=== PATIENT | male | born 1965 | race Caucasian/White ===

== ENCOUNTER 2016-10-06 13:21 | Inpatient (IN) | payer MEDICARE ==
[~2016-10-06 13:21] MED LIST: ALBUTEROL SULF8.5 GM IH; AMOXICILLIN500 M1 PO; AMOXICILLIN875 M1 PO; ASPIRIN EC81 MG PO; ASPIRIN81 M1 PO; ASPIRIN81 MG PO; BACLOFEN10 M1 PO; BACTRIM DS TAB1 EAC2 PO; BACTRIM DS TABL1 TAB PO; CLINDAMYCIN HC300 MG PO; COLACE50 MG PO; CYCLOBENZAPRINE10 M1 PO; CYMBALTA20 MG; CYMBALTA60 M1 PO; CYMBALTA60 MG PO; DIAZEPAM5 M PO; DILAUDID4 MG PO; DOXYCYCLINE MO150 MG PO; EFFEXOR XR150 MG; EFFIENT; EFFIENT10 MG/TAB PO; ENDOCET 10-3251 EACH PO; FENTANYL1 PATC; FEOSOL325 M1 PO; FLEXERIL10 MG; FLEXERIL10 MG PO; FLEXERIL5 MG PO; HYDROCODON-ACE1 EA16 PO; HYDROMORPHONE HC4 M1 PO; IBUPROFEN200 M2 PO; LIPITOR40 MG PO; LORTAB 5/500 TA1 TAB PO; LYRICA100 MG; LYRICA150 MG; METOPROLOL TART25 MG PO; MOBIC15 M2 PO; MORPHINE SULFAT30 M2 PO; MS CONTIN30 M1 PO; MS CONTIN60 MG PO; NEURONTIN300 MG; NEURONTIN300 MG PO; NITROSTAT0.4 MG SL; NO HOME MEDICATION; NORCO 10/325 TA1 TAB PO; NORCO 10/3251 TAB PO; NORCO 5-325 TA1 EACH PO; NORCO 5/325 TAB1 TAB PO; OXYCODONE HCL5 M1 PO; OXYIR5 MG PO; PERCOCET 10-321 EACH PO; PERCOCET 5-3251 EACH PO; PERCOCET 5/3251 TAB PO; PROVENTIL HFA6.7 GM INH; RIFAMPIN300 M1 PO; SPIRIVA18 MCG IH; TOPAMAX25 MG; TRILEPTAL300 MG; TYLENOL EXTRA500 M1 PO; TYLENOL325 M2 PO; ULTRAM50 M1 PO; ULTRAM50 MG; VANCOMYCIN HCL1 GM IV
[2016-10-06 14:38] LABS: ANION GAP 11 mmol/L (0-20); BLOOD UREA NITROGEN 15 mg/dl (6-24); CARBON DIOXIDE-VENOUS 25 mmol/L (22-32); CHLORIDE 107 mmol/l (96-110); CREATININE 1.28 mg/dl (0.60-1.30); GLUCOSE 126 mg/dL (70-110); SODIUM 139 mmol/L (135-145); eGFR VALUE FOR BLACK 75 mL/Min
[2016-10-07 04:53] LABS: BASO ABSOLUTE COUNT 0.1 tho/cmm (0.0-0.2); EOS % 2.2 % (0-7); EOSINOPHIL ABSOLUTE COUNT 0.1 tho/cmm (0.0-0.7); HCT-HEMATOCRIT 30.4 % (36.0-53.5); HGB-HEMOGLOBIN 9.5 gm/dl (13.5-17.0); IMMATURE GRANULOCYTES ABSOLUTE 0.01 tho/cmm (0-0.03); IMMATURE GRANULOCYTES PERCENT 0.2 % (0-0.3); LYMPH % 39.2 % (20-45); LYMPH ABSOLUTE COUNT 2.3 tho/cmm (0.8-4.5); MCH (MEAN CORPUSCULAR HGB) 28.2 pg (28.0-32.0); MCHC MEAN CORPUSCULAR HGB CONC 31.3 % (32.0-36.0); MCV (MEAN CELL VOLUME) 90.2 fl (82.0-96.0); MEAN PLATELET VOLUME 8.9 cmc (9.4-12.4); MONO % 6.7 % (0-12); MONOCYTE ABSOLUTE COUNT 0.4 tho/cmm (0.0-1.2); NEUTROPHILS % 50.7 % (40-80); PLATELET COUNT 179 tho/cmm (150-450); RED BLOOD COUNT 3.37 mil/cmm (4.40-5.70); RED CELL DISTRIBUTION WIDTH 15.4 % (12.4-16.4)
[2016-10-07 05:32] LABS: ALB/GLOB RATIO 0.6 (0.8-2.0); ALBUMIN 2.7 g/dl (3.5-5.0); ALKALINE PHOSPHATASE 121 U/L (33-138); ALT/SGPT 13 U/L (12-78); ANION GAP 12 mmol/L (0-20); AST/SGOT 17 U/L (10-40); BLOOD UREA NITROGEN 15 mg/dl (6-24); CALCIUM 7.8 mg/dl (8.5-10.5); CARBON DIOXIDE-VENOUS 28 mmol/L (22-32); CHLORIDE 106 mmol/l (96-110); CREATININE 1.27 mg/dl (0.60-1.30); GLUCOSE 100 mg/dL (70-110); POTASSIUM 3.6 mmol/L (3.7-5.1); SODIUM 142 mmol/L (135-145); eGFR VALUE FOR BLACK 76 mL/Min
[2016-10-07 05:40] LABS: BILIRUBIN,TOTAL <0.1 mg/dl (0.0-1.5)
== END 2016-10-07 13:50 | DRG 468 ==
LOC: EDMED 13:21 → EMR2 16:53 → PACU 18:30 → 5WE 20:40
PROVIDERS: Emergency Medicine; Registered Nurse; ADMIT Orthopaedic Surgery Foot and Ankle Surgery
PROC: 0SRS01Z Replacement of Left Hip Joint, Femoral Surface with Metal Synthetic Substitute, Open Approach (ICD-10-PCS; principal; 2016-10-06)
PROC: 0SPB09Z Removal of Liner from Left Hip Joint, Open Approach (ICD-10-PCS; 2016-10-06)
PROC: 0SUB09Z Supplement Left Hip Joint with Liner, Open Approach (ICD-10-PCS; 2016-10-06)
PROC: 0SPS0JZ Removal of Synthetic Substitute from Left Hip Joint, Femoral Surface, Open Approach (ICD-10-PCS; 2016-10-06)
DX: T84.021A Dislocation of internal left hip prosthesis, initial encounter (principal); I10 Essential (primary) hypertension; E78.5 Hyperlipidemia, unspecified; I25.10 Atherosclerotic heart disease of native coronary artery without angina pectoris; Z95.5 Presence of coronary angioplasty implant and graft; F17.210 Nicotine dependence, cigarettes, uncomplicated; Z86.14 Personal history of Methicillin resistant Staphylococcus aureus infection; M19.90 Unspecified osteoarthritis, unspecified site; J44.9 Chronic obstructive pulmonary disease, unspecified; F31.9 Bipolar disorder, unspecified; G89.29 Other chronic pain; Z98.1 Arthrodesis status; Z88.0 Allergy status to penicillin
CPT/HCPCS: C1776; J0171; J0690; J1170; J1885; J2270; J2405; J2795; J3010; J7030